=== PATIENT | male | born 1965 | race African-American/Black ===

== ENCOUNTER 2016-11-18 15:13 | Emergency (ER) | payer OTHER ==
[~2016-11-18] VITALS: Ht 180.3 cm; Wt 72.6 kg
[2016-11-18 15:30] VITALS: BP 1/1
[2016-11-18] MEDS ORDERED: HYDROCORTISON28.4 G5 TP (15:30)
[2016-11-18] MEDS ORDERED: BACITRACIN15 GM TOPIC (15:30)
[2016-11-18 16:29] LABS: APPEARANCE,URINE CLEAR; KETONES,URINE 1+ (NEGATIVE); LEUKOCYTE ESTERASE ,URINE 1+ (NEGATIVE); NITRITE,URINE NEGATIVE (NEGATIVE); PH,URINE 5 (4.5-8.0); PROTEIN,URINE NEGATIVE (NEGATIVE); UROBILINOGEN,URINE 1 MG/DL (0.0-1.0)
[2016-11-18 16:42] LABS: AMORPHOUS SEDIMENT,UR FEW /LPF; BACTERIA,URINE FEW /HPF; MUCUS,URINE FEW /LPF (NONE/OCC)
--- NOTE | 2016-11-18 17:36 | Emergency Room Report ---
History of Present Illness General Chief Complaint: Male Urogenital Problems Source: Patient Present Illness [facility] The patient is a 51-year-old male presenting for penile pain. He states that he has been essentially active with only one female partner over the past years. He denies any known injury. He denies dysuria, hematuria, penile discharge, testicular pain. He describes pain only with touch to the shaft. He has also noticed redness to the skin. Pain described as a 5/10 dull ache. Does not radiate. He denies any other symptoms including nausea, vomiting, fever, chills Allergies: Coded Allergies: No Known Allergies (Unverified , 11/18/16) Patient History Past Medical History: see triage record Pertinent Family History: none Reviewed Nursing Documentation: PMH: Agreed, PSxH: Agreed Nursing Documentation-PM Past Medical History: No Stated History Review of Systems All Other Systems: negative except mentioned in HPI Physical Exam Vital Signs Date Time Temp Pulse Resp B/P Pulse Ox O2 Delivery O2 Flow Rate FiO2 11/18/16 15:18 98.1 44 14 94 Room Air 11/18/16 15:30 06/12 Sp02 EP Interpretation: reviewed, normal General Appearance: no apparent distress, alert, GCS 15, non-toxic Head: normocephalic, atraumatic Eyes: bilateral eye PERRL, bilateral eye normal inspection ENT: hearing grossly normal, normal pharynx, no angioedema, normal voice Gastrointestinal: normal bowel sounds, non tender, soft, non-distended, no guarding, no rebound Genitourinary: no CVA tenderness, scrotum normal, other - There is erythema of the distal penile shaft beneath the foreskin. TTP Musculoskeletal: back normal, gait/station normal, normal range of motion, non- tender Neurologic: alert, oriented x3, responsive, motor strength/tone normal, sensory intact, speech normal Psychiatric: judgement/insight normal, memory normal, mood/affect normal, no suicidal/homicidal ideation Skin: warm/dry, well hydrated Lymphatic: no adenopathy Medical Decision Making PA Attestation Dr. Ellsworth is my supervising physician. Patient management was discussed with my supervising physician Diagnostic Impression: Primary Impression: Balanitis ER Course The patient is a 51-year-old male presenting for penile pain Differential diagnosis considered but not limited to: UTI, urethritis, orchitis , STD, balanitis, among others PE: vitals WNL. NAD There is erythema of the distal penile shaft beneath the foreskin. TTP. No edema to penis or scrotum. No DC. UA: occult blood and RBCs. No signs of infection He is informed of these results and will need to FU with urology and PMD. He is given a prescription for bacitracin and hydrocortisone. ER precautions given Laboratory Tests Test 11/18/16 15:20 Urine Color Yellow Urine Appearance Clear Urine pH 5 (4.5-8.0) Urine Specific [place] 1.025 (1.005-1.035) Urine Protein Negative (NEGATIVE) Urine Glucose (UA) Negative (NEGATIVE) Urine Ketones 1+ (NEGATIVE) H Urine Occult Blood 4+ (NEGATIVE) H Urine Nitrite Negative (NEGATIVE) Urine Bilirubin Negative (NEGATIVE) Urine Urobilinogen 1 MG/DL (0.0-1.0) H Urine Leukocyte Esterase 1+ (NEGATIVE) H Urine RBC 5-10 /HPF (0 - 0) H Urine WBC 2-4 /HPF (0 - 0) Urine Squamous Epithelial Cells None /LPF (NONE/OCC) Urine Amorphous Sediment Few /LPF (NONE) H Urine Bacteria Few /HPF (NONE) Urine Mucus Few /LPF (NONE/OCC) H Urine HCG, Qualitative Lab Results Impression No signs of infection. There are red blood cells with occult blood Chest X-Ray Diagnostic Results Chest X-Ray Ordered: No Last Vital Signs Date Time Temp Pulse Resp B/P Pulse Ox O2 Delivery O2 Flow Rate FiO2 11/18/16 15:30 98.1 14 1/ 94 Room Air 11/18/16 15:18 44 Status: improved Disposition: HOME, SELF-CARE Condition: Improved Scripts Hydrocortisone 1% cream (Hydrocortisone 1% cream) Y Cr 28.4 GM TP Q12HR, #28 GM Prov: TERZIAN,OSCAR P.A. 11/18/16 Bacitracin (Bacitracin) 28.4 Gm Oint...g. 1 APPLIC TOPIC THREE TIMES A DAY, #28 GM Prov: TERZIAN,OSCAR P.A. 11/18/16 Referrals: [facility] (PCP) Patient Instructions: Lori Additional Instructions: I discussed my findings with the patient. All questions and concerns have been answered. Treatment and medication compliance have been addressed. I advised the patient that they need to follow up with PMD in 3-5 days. Return to ED if symptoms worsen, new symptoms arise, or if needed for any reason. Patient verbalized understanding of discharge instructions. OSCAR ARROYO. Nov 18, 2016 17:36
== END 2016-11-18 15:30 | disposition home or self-care (01) ==
LOC: EMR 15:28
DX: N48.1 Balanitis (principal); N48.89 Other specified disorders of penis
CPT/HCPCS: 81003; 81025; 99284

== ENCOUNTER 2019-03-23 18:17 | Emergency (ER) | payer OTHER ==
[~2019-03-23] VITALS: Ht 180.3 cm; Wt 68.0 kg
[~2019-03-23 18:17] MED LIST: BACITRACIN15 GM TOPIC; HYDROCORTISON28.4 G5 TP
[2019-03-23] MEDS ORDERED: NKM (18:22)
[2019-03-23 18:23] VITALS: BP 109/77
--- NOTE | 2019-03-23 18:25 | NUR ---
ED Nurse Note:pt. came with c/o left earache for 1 week
--- NOTE | 2019-03-23 18:42 | Emergency Room Report ---
History of Present Illness General Chief Complaint: Earache Source: Patient Present Illness HPI 53-year-old male presents with left ear pain, patient has been taking it with a Q-tip, no fevers no chills, no changes in hearing, no aggravating or relieving factors severity is mild, symptoms have been constant, patient presents for evaluation. Allergies: Coded Allergies: No Known Allergies (Unverified , 11/18/16) Patient History Past Medical History: see triage record Reviewed Nursing Documentation: PMH: Agreed; PSxH: Agreed Nursing Documentation-PMH Past Medical History: No Stated History Review of Systems All Other Systems: negative except mentioned in HPI Physical Exam Vital Signs Date Time Temp Pulse Resp B/P (MAP) Pulse Ox O2 Delivery O2 Flow Rate FiO2 03/23/19 18:20 97.9 66 18 109/77 (88) 97 Room Air General Appearance: well appearing, no apparent distress Head: normocephalic, atraumatic Eyes: bilateral eye normal inspection, bilateral eye PERRL, bilateral eye EOMI ENT: hearing grossly normal, normal voice, other - Left ear canal inflamed, right ear normal Neck: full range of motion, supple Respiratory: no respiratory distress, speaking full sentences Neurologic: alert, normal gait Psychiatric: mood/affect normal Skin: no rash Medical Decision Making Diagnostic Impression: Primary Impression: Otitis externa Qualified Codes: H60.502 - Unspecified acute noninfective otitis externa, left ear ER Course Patient with otitis externa, will provide patient with eardrops, counseled patient not to put any foreign object in left ear disposition home with return precautions Last Vital Signs Date Time Temp Pulse Resp B/P (MAP) Pulse Ox O2 Delivery O2 Flow Rate FiO2 03/23/19 18:23 97.9 18 109/77 97 Room Air 03/23/19 18:20 66 Disposition: HOME, SELF-CARE Condition: Stable Scripts Neomycin/Polymyxin B Sulf/Hc* (CORTISPORIN EAR SOLUTION*) 10 Ml Solution 4 DROP LEFT EAR QID for 7 Days, #10 ML 0 Refills Prov: Davey Capone MD 03/23/19 Referrals: [facility] Patient Instructions: Otitis Externa, [id number] Additional Instructions: The patient was provided with discharge instructions, notified to follow-up with a primary care doctor and or specialist in the next 24-48 hours, and to return to the ED if they have worsening of their symptoms. Please note that this report is being documented using [employer] technology. This can lead to erroneous entry secondary to incorrect interpretation by the dictating instrument. Davey Capone MD Mar 23, 2019 18:42
[2019-03-23] MEDS ORDERED: CORTISPORIN EAR10 ML LEFT EAR (18:47)
--- NOTE | 2019-03-23 18:50 | NUR ---
ER DISCHARGE NOTE: Patient is cleared to be discharged per ERMD, pt is aox4, on room air, with stable vital signs. pt was given dc and prescription instructions, pt was able to verbalize understanding, pt is able to ambulate with steady gait. pt took all belongings.
== END 2019-03-23 19:06 | disposition home or self-care (01) ==
LOC: EMR 18:40
DX: H60.502 Unspecified acute noninfective otitis externa, left ear (principal)
CPT/HCPCS: 99282